=== PATIENT | female | born 1990 | race Caucasian/White ===

== ENCOUNTER 2018-07-31 15:14 | Emergency (ER) | payer MEDICARE ==
[2018-07-31 15:40] VITALS: BP 105/67
[2018-07-31] MEDS ORDERED: OXYCODONE-ACETAMINOPHEN 5-325 MG TABLET PO ONE (16:38)
--- NOTE | 2018-07-31 16:46 | ER Document Report ---
HPI - HPI Patient complains to provider of: fall Time Seen by Provider: 07/31/18 16:15 Onset: Just prior to arrival Onset/Duration: Sudden Severity: Severe Pain Level: 5 Context: Patient presents emergency department with complaints of left hip and knee pain. Patient reports that her dog got loose and she went to find them. She reports she fell off a retaining wall ledge. She landed on her left hip and knee. 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 Patient does not think she hit her head denies change in LOC. Patient is alert and oriented clear speech no obvious deformities, abrasions to left knee and left foot. Patient reports tetanus is up-to-date. Associated Symptoms: None Exacerbated by: Movement Relieved by: Denies Similar symptoms previously: No Recently seen / treated by doctor: No - REPRODUCTIVE Reproductive: DENIES: : - MUSCULOSKELETAL Musculoskeletal: REPORTS: Extremity pain Past Medical History - General Information source: Patient Last Menstrual Period: recent miscarriage - Social History Smoking Status: Current Every Day Smoker Cigarette use (# per day): Yes Frequency of alcohol use: None Drug Abuse: None Family History: None, Reviewed & Not Pertinent Patient has suicidal ideation: No Patient has homicidal ideation: No Renal/ Medical History: Denies: Hx Peritoneal Dialysis Malignancy Medical History: Reports: Hx Leukemia Past Surgical History: Reports: Hx Orthopedic Surgery - left hip replacement Vertical Provider Document - CONSTITUTIONAL Agree With Documented VS: Yes Exam Limitations: No Limitations General Appearance: WD/WN, No Apparent Distress - INFECTION CONTROL TRAVEL OUTSIDE OF THE [place] IN LAST 30 DAYS: No - HEENT HEENT: Atraumatic, Normocephalic - NECK Neck: Normal Inspection, Supple - RESPIRATORY Respiratory: No Respiratory Distress - CARDIOVASCULAR Cardiovascular: Regular Rate - MUSCULOSKELETAL/EXTREMETIES Musculoskeletal/Extremeties: MAEW, FROM, Tender - Left hip groin area tender to palpation no obvious deformity good distal movement and sensation left knee with abrasion no obvious deformity left foot with abrasion good pedal pulse - NEURO Level of Consciousness: Awake, Alert, Appropriate Motor/Sensory: No Motor Deficit - DERM Integumentary: Warm, Dry Adult Front & Back Diagram: 1 - c/o pain 2 - abrasion 3 - abrasion Course - Re-evaluation Re-evalutation: 07/31/18 17:26 Was instructed on negative x-rays. Patient instructed to rest ice elevate the areas of pain watch the abrasions. She verbalized understanding to all instructions. Dictation of this chart was performed using voice recognition software; therefore, there may be some unintended grammatical errors. - Vital Signs Vital signs: Temp Pulse Resp BP Pulse Ox 98.4 F 80 18 105/67 99 07/31/18 15:39 07/31/18 15:39 07/31/18 15:39 07/31/18 15:39 07/31/18 15:39 - Diagnostic Test Radiology reviewed: Image reviewed, Reports reviewed - EXAM DESCRIPTION: HIP LEFT AP/LATERAL COMPLETED DATE/TIME: 07/31/2018 4:56 pm REASON FOR STUDY: fell off ledge, pain ,hx of hip replacement COMPARISON: None. NUMBER OF VIEWS: Two views. TECHNIQUE: AP pelvis and additional frog-leg view of the left hip. LIMITATIONS: None. FINDINGS: MINERALIZATION: Normal. LEFT HIP: Left hip arthroplasty in good position. No acute fracture. No dislocation. RIGHT HIP: No fracture or dislocation. No worrisome bone lesions. PUBIS AND ISCHIUM: No fracture. PELVIS: No fracture. SACRUM: No fracture or dislocation. No worrisome bone lesions. LOWER LUMBAR SPINE: No fracture or dislocation. No worrisome bone lesions. No significant disc disease. SOFT TISSUES: No findi ngs. OTHER: No other significant finding. IMPRESSION: NEGATIVE STUDY OF THE LEFT HIP AND PELVIS. NO RADIOGRAPHIC EVIDENCE OF ACUTE INJURY. TECHNICAL DOCUMENTATION: JOB ID: [id number] [email or web address]- All Rights Reserved Reading location - IP/workstation name: [email or web address] Dictated by: DANIEL ZHENG MD CC: ELADIO XIONG NP > 07/31/18 1706 Principal Lab Rep Name: DANIEL ZHENG Provider ID: [id number] EXAM DESCRIPTION: KNEE LEFT 3 VIEWS COMPLETED DATE/TIME: 07/31/2018 4:56 pm REASON FOR STUDY: fell off ledge, pain ,hx of hip replacement COMPARISON: None. NUMBER OF VIEWS: Three views. TECHNIQUE: AP, lateral, and sunrise patella radiographic images acquired of the left knee. LIMITATIONS: None. FINDINGS: MINERALIZATION: Normal. BONES: No acute fracture or dislocation. No worrisome bone lesions. JOINT: No effusion. SOFT TISSUES: No soft tissue swelling. No radio-opaque foreign body. OTHER: No other significant finding. IMPRESSION: NEGATIVE STUDY OF THE LEFT KNEE. NO RADIOGRAPHIC EVIDENCE OF ACUTE INJURY. Discharge - Discharge Clinical Impression: Left hip pain Fall Qualifiers: Encounter type: initial encounter Qualified Code(s): W19.XXXA - Unspecified fall, initial encounter Left knee pain Qualifiers: Chronicity: acute Qualified Code(s): M25.562 - Pain in left knee Condition: Stable Disposition: HOME, SELF-CARE Instructions: Abrasions ([facility]), Ice & Elevation ([facility]), Oral Narcotic Medication ([facility]) Additional Instructions: *You have been evaluated post fall for hip and knee pain and abrasions Your x-rays were negative for an acute fracture *Rest/Ice/Elevate your knee, ice packs to knee and hip Keep the abrasions clean *Follow up with orthopedics continued pain-call for an appointment *Take medication as prescribed *Return to ED for worsening condition, changes, needs Prescriptions: Oxycodone HCl/Acetaminophen [Percocet 5-325 mg Tablet] 1 tab PO ASDIR PRN #10 tablet PRN Reason:
--- NOTE | 2018-07-31 17:06 | RADIOLOGY REPORT (SQ) ---
EXAM DESCRIPTION: KNEE LEFT 3 VIEWS COMPLETED DATE/TIME: 07/31/2018 4:56 pm REASON FOR STUDY: fell off ledge, pain ,hx of hip replacement COMPARISON: None. NUMBER OF VIEWS: Three views. TECHNIQUE: AP, lateral, and sunrise patella radiographic images acquired of the left knee. LIMITATIONS: None. FINDINGS: MINERALIZATION: Normal. BONES: No acute fracture or dislocation. No worrisome bone lesions. JOINT: No effusion. SOFT TISSUES: No soft tissue swelling. No radio-opaque foreign body. OTHER: No other significant finding. IMPRESSION: NEGATIVE STUDY OF THE LEFT KNEE. NO RADIOGRAPHIC EVIDENCE OF ACUTE INJURY. TECHNICAL DOCUMENTATION: JOB ID: [id number] [employer]- All Rights Reserved Reading location - IP/workstation name: [email or web address]
--- NOTE | 2018-07-31 17:06 | RADIOLOGY REPORT (SQ) ---
EXAM DESCRIPTION: HIP LEFT AP/LATERAL COMPLETED DATE/TIME: 07/31/2018 4:56 pm REASON FOR STUDY: fell off ledge, pain ,hx of hip replacement COMPARISON: None. NUMBER OF VIEWS: Two views. TECHNIQUE: AP pelvis and additional frog-leg view of the left hip. LIMITATIONS: None. FINDINGS: MINERALIZATION: Normal. LEFT HIP: Left hip arthroplasty in good position. No acute fracture. No dislocation. RIGHT HIP: No fracture or dislocation. No worrisome bone lesions. PUBIS AND ISCHIUM: No fracture. PELVIS: No fracture. SACRUM: No fracture or dislocation. No worrisome bone lesions. LOWER LUMBAR SPINE: No fracture or dislocation. No worrisome bone lesions. No significant disc disea se. SOFT TISSUES: No findings. OTHER: No other significant finding. IMPRESSION: NEGATIVE STUDY OF THE LEFT HIP AND PELVIS. NO RADIOGRAPHIC EVIDENCE OF ACUTE INJURY. TECHNICAL DOCUMENTATION: JOB ID: [id number] [employer]- All Rights Reserved Reading location - IP/workstation name: [email or web address]
== END 2018-07-31 17:44 | disposition home or self-care (01) ==
LOC: ER 15:14
DX: S80.212A Abrasion, left knee, initial encounter (principal); S90.812A Abrasion, left foot, initial encounter; M25.552 Pain in left hip; M25.562 Pain in left knee; W13.8XXA Fall from, out of or through other building or structure, initial encounter; Y93.89 Activity, other specified; Z96.642 Presence of left artificial hip joint; Z85.6 Personal history of leukemia; F17.210 Nicotine dependence, cigarettes, uncomplicated
CPT/HCPCS: 99283; 73502; 73562; A9270

== ENCOUNTER 2019-05-20 16:18 | Emergency (ER) | payer MEDICARE ==
[2019-05-20] MEDS ORDERED: NORMAL SALINE 1000 ML 1,000 ML IV ONE (17:14)
--- NOTE | 2019-05-20 17:14 | ER Document Report ---
ED Medical Screen (RME) - General Chief Complaint: Abdominal Pain Stated Complaint: ABDOMINAL PAIN Time Seen by Provider: 05/20/19 17:05 Notes: Patient is a 28-year-old female who presents to the emergency department with a chief complaint of abdominal pain. Patient states that she has had diarrhea past 3 days. Patient's last menstrual cycle was March 31 and she states that she is . Denies any nausea or vomiting. Patient is able to eat and drink with no difficulty. Exam: Soft, mildly tender left mid abdomen. I have greeted and performed a rapid initial assessment of this patient. A comprehensive ED assessment and evaluation of the patient, analysis of test results and completion of medical decision making process will be conducted by an additional ED providers. TRAVEL OUTSIDE OF THE [place] IN LAST 30 DAYS: No - Related Data Allergies/Adverse Reactions: No Known Allergies Allergy (Unverified 07/31/18 16:23) Past Medical History Renal/ Medical History: Denies: Hx Peritoneal Dialysis Malignancy Medical History: Reports: Hx Leukemia Past Surgical History: Reports: Hx Orthopedic Surgery - left hip replacement Physical Exam - Vital signs Vitals: Temp Pulse Resp BP Pulse Ox 97.7 F 110 H 20 117/74 100 05/20/19 16:21 05/20/19 16:21 05/20/19 16:21 05/20/19 16:21 05/20/19 16:21 Course - Vital Signs Vital signs: Temp Pulse Resp BP Pulse Ox 97.7 F 110 H 20 117/74 100 05/20/19 16:21 05/20/19 16:21 05/20/19 16:21 05/20/19 16:21 05/20/19 16:21
[2019-05-20] MEDS ORDERED: ACETAMINOPHEN 325 MG TABLET PO ONE (17:46)
[2019-05-20 18:43] LABS: ABSOLUTE EOSINOPHILS # (AUTO) 0.1 10^3/uL (0.0-0.6); ABSOLUTE MONOCYTES (AUTO) 0.8 10^3/uL (0.1-1.4); ABSOLUTE NEUT (AUTO) 6.8 10^3/uL (1.7-8.2); BASOPHILS % (AUTO) 0.3 % (0-2); EOSINOPHILS % (AUTO) 1.3 % (0-6); HEMATOCRIT 35.5 % (36.0-47.0); LYMPHOCYTES % (AUTO) 20.7 % (13-45); MEAN CORPUSCULAR HEMOGLOBIN 29.1 pg (27.0-33.4); MEAN CORPUSCULAR HGB CONC 33.7 g/dL (32.0-36.0); MEAN CORPUSCULAR VOLUME 87 fl (80-97); PLATELET COUNT 268 10^3/uL (150-450); RED CELL DISTRIBUTION WIDTH 15.2 % (11.5-14.0); SEGMENTED NEUTROPHILS % (AUTO) 69.7 % (42-78); TOTAL CELLS COUNTED % (AUTO) 100 %; WHITE BLOOD COUNT 9.7 10^3/uL (4.0-10.5)
[2019-05-20 19:00] LABS: APPEARANCE,URINE SLIGHTLY-CLOUDY; BILIRUBIN,URINE NEGATIVE (NEGATIVE); COLOR,URINE YELLOW; GLUCOSE, URINE NEGATIVE (NEGATIVE); KETONES,URINE NEGATIVE (NEGATIVE); PROTEIN,URINE NEGATIVE (NEGATIVE); URINE SPECIFIC GRAVITY 1.026; UROBILINOGEN,URINE NEGATIVE mg/dL (<2.0)
[2019-05-20 19:05] LABS: ALBUMIN 4.1 g/dL (3.5-5.0); ALKALINE PHOSPHATASE 50 U/L (38-126); ANION GAP 9 (5-19); ASPARTATE AMINO TRANSFERASE 28 U/L (14-36); BILIRUBIN,TOTAL 0.2 mg/dL (0.2-1.3); BLOOD UREA NITROGEN 15 mg/dL (7-20); CALCIUM 9.6 mg/dL (8.4-10.2); CARBON DIOXIDE 27 mmol/L (22-30); CHLORIDE 100 mmol/L (98-107); GLUCOSE 81 mg/dL (75-110); TOTAL PROTEIN 6.7 g/dL (6.3-8.2)
--- NOTE | 2019-05-20 20:56 | ER Document Report ---
ED GI/ - General Chief Complaint: Lower Abdominal Pain Stated Complaint: ABDOMINAL PAIN Time Seen by Provider: 05/20/19 17:05 Notes: Patient is a 28-year-old female that comes to the emergency department for chief complaint of lower abdominal pain. She is a G1, P0 at unknown gestation with LMP at the end of March and positive home test but no confirmed test or ultrasound. She denies vaginal bleeding or discharge, she denies injury, she denies fever/chills, nausea/vomiting. She states she has had 3 loose stools over the past day, nonbloody. She states she is eating well. Past medical history of leukemia and completed chemotherapy over 5 years ago, has avascular necrosis and right hip replacement, denies any medical history otherwise, denies any daily medications. TRAVEL OUTSIDE OF THE [place] IN LAST 30 DAYS: No - Related Data Allergies/Adverse Reactions: No Known Allergies Allergy (Unverified 07/31/18 16:23) Past Medical History - General Information source: Patient - Social History Smoking Status: Never Smoker Frequency of alcohol use: None Drug Abuse: None Lives with: Family Family History: None, Reviewed & Not Pertinent Patient has suicidal ideation: No Patient has homicidal ideation: No Renal/ Medical History: Denies: Hx Peritoneal Dialysis Malignancy Medical History: Reports: Hx Leukemia Past Surgical History: Reports: Hx Orthopedic Surgery - left hip replacement - Immunizations Immunizations up to date: Yes Hx Diphtheria, Pertussis, Tetanus Vaccination: Yes Review of Systems - Review of Systems Constitutional: No symptoms reported EENT: No symptoms reported Cardiovascular: No symptoms reported Respiratory: No symptoms reported Gastrointestinal: See HPI Genitourinary: No symptoms reported Female Genitourinary: See HPI Musculoskeletal: No symptoms reported Skin: No symptoms reported Hematologic/Lymphatic: No symptoms reported Neurological/Psychological: No symptoms reported Physical Exam - Vital signs Vitals: Temp Pulse Resp BP Pulse Ox 97.7 F 110 H 20 117/74 100 05/20/19 16:21 05/20/19 16:21 05/20/19 16:21 05/20/19 16:21 05/20/19 16:21 - Notes Notes: GENERAL: Alert, interacts well. No acute distress. HEAD: Normocephalic, atraumatic. EYES: Pupils equal, round, and reactive to light. Extraocular movements intact. ENT: Oral mucosa moist, tongue midline. Oropharynx unremarkable. Airway patent. NECK: Full range of motion. Supple. Trachea midline. LUNGS: Clear to auscultation bilaterally, no wheezes, rales, or rhonchi. No respiratory distress. HEART: Regular rate and rhythm. No murmur ABDOMEN: Soft, non-tender. Non-distended. Bowel sounds present in all 4 quadrants. GENITOURINARY: Deferred EXTREMITIES: Moves all 4 extremities spontaneously. No edema, normal radial and dorsalis pedis pulses bilaterally. No cyanosis. BACK: no cervical, thoracic, lumbar midline tenderness. No saddle anesthesia, normal distal neurovascular exam. Moves all extremities in full range of motion. NEUROLOGICAL: Alert and oriented x3. Normal speech. Cranial nerves II through XII grossly intact. PSYCH: Normal affect, normal mood. SKIN: Warm, dry, normal turgor. No rashes or lesions noted. Course - Re-evaluation Re-evalutation: Laboratory work-up including CBC, chemistry, urinalysis showing some dehydration but is nonspecific otherwise. hCG is elevated. Patient does not have specific tenderness on exam but is complaining of lower abdominal tenderness and she has no confirmed IUP up to this point. Ultrasound was performed for this reason, shows a living intrauterine with no concerning abnormality. Small cyst on left ovary, unremarkable with no signs of torsion, no concerning findings. Discussed with patient, provided her with a copy of her report, discussed follow-up, expectations, return precautions. Patient was pain-free after simply Tylenol. Patient states appreciation and agreement with plan. Stable at time of discharge. - Vital Signs Vital signs: Temp Pulse Resp BP Pulse Ox 98 F 76 14 102/73 99 05/20/19 23:28 05/20/19 23:28 05/20/19 23:28 05/20/19 23:28 05/20/19 23:28 - Laboratory Result Diagrams: 05/20/19 17:54 05/20/19 17:54 Laboratory results interpreted by me: 05/20/19 05/20/19 17:54 17:54 Hct 35.5 L RDW 15.2 H Sodium 135.6 L Beta HCG, Quant [id number] H Discharge - Discharge Clinical Impression: Abdominal cramping affecting Condition: Stable Disposition: HOME, SELF-CARE Additional Instructions: Your work-up shows a normal in the uterus without concerning findings. You have been treated for dehydration, improve your hydration at home. You do have a small cyst on the left ovary, this should resolve with time. Take Tyleno l for pain if needed. 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 Return for any concerning symptoms including severe abdominal pain, fever, vomiting, bleeding, or any other concerning symptoms.
--- NOTE | 2019-05-20 23:02 | RADIOLOGY REPORT (SQ) ---
US PELVIS EXAM DATE: 05/20/2019 8:53 PM [employer] HISTORY: Early . Pelvic pain. COMPARISON: None. TECHNIQUE: Grayscale, color Doppler, and spectral Doppler ultrasound images of the pelvis were obtained. FINDINGS: There is an intrauterine gestational sac with a yolk sac and pole visualized. The crown-rump length measures 2 cm corresponding to 8 weeks 4 days of . The heart rate is 162 bpm. The ovaries are normal in size and contain normal color Doppler blood flow. There is a corpus luteum cyst in the left ovary which measures 2 cm. IMPRESSION: 1. Single live IUP with estimated gestational age 8 weeks 4 days. 2. 2 cm left ovarian corpus luteum cyst for which no follow-up is needed.
[2019-05-20 23:27] VITALS: BP 102/73
== END 2019-05-20 23:28 | disposition home or self-care (01) ==
LOC: ER 16:18
DX: O34.81 Maternal care for other abnormalities of pelvic organs, first trimester (principal); N83.12 Corpus luteum cyst of left ovary; O26.891 Other specified pregnancy related conditions, first trimester; R10.30 Lower abdominal pain, unspecified; R19.4 Change in bowel habit; O99.281 Endocrine, nutritional and metabolic diseases complicating pregnancy, first trimester; E86.0 Dehydration; Z3A.00 Weeks of gestation of pregnancy not specified; Z85.6 Personal history of leukemia; Z92.21 Personal history of antineoplastic chemotherapy
CPT/HCPCS: 99284; 96360; 96361; 36415; 84702; 85025; 80053; 81001; 76817; 93976; A9270; J7030